=== PATIENT | male | born 1995 | race Caucasian/White ===

== ENCOUNTER 2017-10-18 15:06 | Emergency (ER) | payer SELFPAY ==
[~2017-10-18] VITALS: Ht 180.3 cm; Wt 86.4 kg
[2017-10-18 15:08] VITALS: BP 136/90; PULSE 128; RESP 20; TEMP 99.6; O2SAT 100
[2017-10-18 16:21] LABS: AUTOMATED NEUTROPHIL # 8.6 TH/MM3 (1.8-7.7); BASOPHIL % 0.3 % (0.0-2.0); HEMATOCRIT 44.9 % (39.0-51.0); HEMO FLAGS DIFF FINAL; LYMPH % 15.4 % (9.0-44.0); LYMPHOCYTE # 1.7 TH/MM3 (1.0-4.8); MEAN CELL VOLUME 83.6 FL (80.0-100.0); MEAN CORPUSCULAR HEMOGLOBIN 27.9 PG (27.0-34.0); MEAN CORPUSCULAR HGB CONC 33.3 % (32.0-36.0); MONO % 8.1 % (0.0-8.0); NEUT % 76.2 % (16.0-70.0); PLATELET COUNT 179 TH/MM3 (150-450); RED BLOOD COUNT 5.37 MIL/MM3 (4.50-5.90); RED CELL DISTRIBUTION WIDTH 13.2 % (11.6-17.2); WHITE BLOOD COUNT 11.3 TH/MM3 (4.0-11.0)
[2017-10-18 16:35] LABS: ALT (GPT) 150 U/L (12-78); ANION GAP 9 MEQ/L (5-15); AST (GOT) 43 U/L (15-37); BICARBONATE 24.9 MEQ/L (21.0-32.0); BLOOD UREA NITROGEN 23 MG/DL (7-18); CHLORIDE 106 MEQ/L (98-107); GLOMERULAR FILTRATION RATE 106 ML/MIN (>89); POTASSIUM 3.5 MEQ/L (3.5-5.1); SODIUM (NA) 140 MEQ/L (136-145)
[2017-10-18 16:37] LABS: ALKALINE PHOSPHATASE 78 U/L (45-117); CREATINE KINASE 206 U/L (39-308)
[2017-10-18] MEDS ORDERED: SODIUM CHLOR 0.9% 1000 ML INJ 1,000 ML IV SCH (16:48)
--- NOTE | 2017-10-18 16:59 | PD ---
HPI Chief Complaint: Alcohol/Drug Intoxication Time Seen by Provider: 16:31 Travel History International Travel<30 days: No Contact w/Intl Traveler<30days: No Traveled to known affect area: No History of Present Illness HPI 22-year-old male presents to the emergency department with complaint of diaphoresis, cramping his forearms and hands, and feeling confused after injecting Mollie, and amphetamine, at proximally 4 AM this morning. Denies fever or vomiting. Reports left-sided chest pain that started about 4 hours ago. Denies shortness of breath. Denies heart palpitations. Rates chest pain 6/10. Says it has gotten better since it first started. Describes as an aching and throbbing sensation. Denies associated alcohol use or other illicit drug use. Does not have an established primary care provider. No known allergies. Denies significant past medical history. Denies current medications. Has no other medical complaints. No other modifying factors or associated signs and symptoms. PFSH Past Medical History Medical History: Denies Significant Hx Tetanus Vaccination: Unknown Influenza Vaccination: No Past Surgical History Surgical History: No Previous Surgery Other Surgery: Yes Social History Alcohol Use: No Tobacco Use: Yes (1 ppd) Substance Use: No Allergies-Medications (Allergen,Severity, Reaction): Coded Allergies: No Known Allergies (Unverified Adverse Reaction, Unknown, 10/18/17) Reported Meds & Prescriptions Reported Meds & Active Scripts Active No Active Prescriptions or Reported Medications Review of Systems Except as stated in HPI: all other systems reviewed are Neg Physical Exam Narrative GENERAL: Well-nourished, well-developed patient, in no acute distress SKIN: Warm and dry. HEAD: Atraumatic. Normocephalic. No facial droop noted. Tongue midline. Finger to nose test normal. EYES: Pupils equal and round at 5 mm with brisk reaction. No scleral icterus. No injection or drainage. PERRLA. EOMI. ENT: Mucosa pink and moist. Airway patent. NECK: Trachea midline. No lymphadenopathy. CARDIOVASCULAR: Tachycardic rate and rhythm. No murmur appreciated. RESPIRATORY: No accessory muscle use. Clear to auscultation. Breath sounds equal bilaterally. GASTROINTESTINAL: Abdomen soft, non-tender, nondistended. Hepatic and splenic margins not palpable. Bowel sounds are active 4 quadrants. MUSCULOSKELETAL: No obvious deformities. No clubbing. No cyanosis. No edema. NEUROLOGICAL: Awake and alert. Oriented 3. No obvious cranial nerve deficits. Motor grossly within normal limits. Normal speech. No ataxia. No mid -line drift. Moves all extremities. 5/5 strength to all extremities. PSYCHIATRIC: Appropriate mood and affect; insight and judgment normal. Data Data Last Documented VS Vital Signs Date Time Temp Pulse Resp B/P (MAP) Pulse Ox O2 Delivery O2 Flow Rate FiO2 10/18/17 19:10 101 14 99 Room Air 10/18/17 19:10 125/66 (85) 10/18/17 15:08 99.6 Orders Orders Complete Blood Count With Diff (10/18/17 15:26) Comprehensive Metabolic Panel (10/18/17 15:26) Urinalysis - C+S If Indicated (10/18/17 15:26) Drug Screen, Random Urine (10/18/17 15:26) Creatine Kinase (Cpk) (10/18/17 15:26) Iv Access Insert/Monitor (10/18/17 16:48) Sodium Chlor 0.9% 1000 Ml Inj (Ns 1000 M (10/18/17 16:48) Electrocardiogram (10/18/17 16:59) Ckmb (Isoenzyme) Profile (10/18/17 16:59) Magnesium (Mg) (10/18/17 16:59) Prothrombin Time / Inr (Pt) (10/18/17 16:59) Act Partial Throm Time (Ptt) (10/18/17 16:59) Troponin I (10/18/17 16:59) Chest, Single Ap (10/18/17 16:59) Ecg Monitoring (10/18/17 16:59) Oximetry (10/18/17 16:59) Oxygen Administration (10/18/17 16:59) Sodium Chloride 0.9% Flush (Ns Flush) (10/18/17 17:00) CKMB (10/18/17 18:00) CKMB% (10/18/17 18:00) Ed Discharge Order (10/18/17 20:38) Labs Laboratory Tests Test 10/18/17 15:40 10/18/17 18:00 White Blood Count 11.3 TH/MM3 Red Blood Count 5.37 MIL/MM3 Hemoglobin 15.0 GM/DL Hematocrit 44.9 % Mean Corpuscular Volume 83.6 FL Mean Corpuscular Hemoglobin 27.9 PG Mean Corpuscular Hemoglobin Concent 33.3 % Red Cell Distribution Width 13.2 % Platelet Count 179 TH/MM3 Mean Platelet Volume 10.8 FL Neutrophils (%) (Auto) 76.2 % Lymphocytes (%) (Auto) 15.4 % Monocytes (%) (Auto) 8.1 % Eosinophils (%) (Auto) 0.0 % Basophils (%) (Auto) 0.3 % Neutrophils # (Auto) 8.6 TH/MM3 Lymphocytes # (Auto) 1.7 TH/MM3 Monocytes # (Auto) 0.9 TH/MM3 Eosinophils # (Auto) 0.0 TH/MM3 Basophils # (Auto) 0.0 TH/MM3 CBC Comment DIFF FINAL Differential Comment Blood Urea Nitrogen 23 MG/DL Creatinine 0.89 MG/DL Random Glucose 100 MG/DL Total Protein 8.6 GM/DL Albumin 4.8 GM/DL Calcium Level 10.0 MG/DL Alkaline Phosphatase 78 U/L Aspartate Amino Transf (AST/SGOT) 43 U/L Alanine Aminotransferase (ALT/SGPT) 150 U/L Total Bilirubin 1.0 MG/DL Sodium Level 140 MEQ/L Potassium Level 3.5 MEQ/L Chloride Level 106 MEQ/L Carbon Dioxide Level 24.9 MEQ/L Anion Gap 9 MEQ/L Estimat Glomerular Filtration Rate 106 ML/MIN Total Creatine Kinase 206 U/L 181 U/L Prothrombin Time 11.7 SEC Prothromb Time International Ratio 1.1 RATIO Activated Partial Thromboplast Time 31.9 SEC Magnesium Level 1.9 MG/DL Creatine Kinase MB 3.0 NG/ML Troponin I LESS THAN 0.02 NG/ML [facility] Medical Decision Making Medical Screen Exam Complete: Yes Emergency Medical Condition: Yes Medical Record Reviewed: Yes Differential Diagnosis Drug intoxication, WI, anxiety, drug induced chest pain, dehydration Narrative Course 22-year-old male with chest pain and muscle cramping in his forearms and hands after injecting and amphetamine called Terrie at approximately 4 AM. Neuro exam is unremarkable. CBC and CMP ordered in triage. Cardiac enzymes, chest x-ray, EKG, IV, normal saline bolus ordered. 1736: CBC unremarkable. CMP unremarkable. AST 43. ALT 150. Chest x-ray with no acute findings. 1919: Patient ambulating in the hallway with a normal gait. 1943: Magnesium 1.9. Troponin less than 0.02. CK-MB 3.0. 2038: Patient sleeping comfortably in bed. Patient reports improvement in symptoms; denies chest pain at this time. Patient ate food and tolerated well. Instructed patient to follow up with primary care provider. Patient verbalizes understanding and agreement with treatment plan. Patient is medically cleared and stable for discharge. Discussed reasons to return to the emergency department. Patient agrees with treatment plan. The patients vital signs are stable and the patient is stable for outpatient follow-up and treatment. Patient discharged home, stable and in no acute distress. Diagnosis Primary Impression: Drug intoxication Qualified Codes: F19.920 - Other psychoactive substance use, unspecified with intoxication, uncomplicated Additional Impressions: Muscle cramping Chest pain Qualified Codes: R07.9 - Chest pain, unspecified Referrals: [facility] Primary Care Physician Patient Instructions: General Instructions Additional Instructions: Stop using drugs Increase fluid intake Follow-up with primary care provider Return to the emergency department immediately if worsening of symptoms Med/Other Pt SpecificInfo: No Change to Meds, No Meds Exist/No RX given Scripts No Active Prescriptions or Reported Meds Disposition: 01 DISCHARGE HOME Condition: Stable Lani Reyna Oct 18, 2017 16:59
[2017-10-18] MEDS ORDERED: SODIUM CHLORIDE 0.9% FLUSH 10 ML FLUSH IVF PRN (17:00)
--- NOTE | 2017-10-18 17:28 | RADRPT ---
EXAM DATE/TIME: 10/18/2017 17:18 [place] COMPARISON: No previous studies available for comparison. INDICATIONS : Chest pain and shortness of breath. MEDICAL HISTORY : None. SURGICAL HISTORY : None. ENCOUNTER: Initial ACUITY: 1 day PAIN SCORE: 10/10 LOCATION: Bilateral chest FINDINGS: A single view of the chest demonstrates the lungs to be symmetrically aerated without evidence of mas s, infiltrate or effusion. The cardiomediastinal contours are unremarkable. Osseous structures are intact. CONCLUSION: No acute disease. Masoud Gates MD FACR on October 18, 2017 at 17:26 Board Certified Radiologist. This report was verified electronically.
[2017-10-18 17:43] VITALS: BP 125/72; PULSE 89; RESP 18; O2SAT 100
[2017-10-18 18:36] LABS: MAGNESIUM 1.9 MG/DL (1.5-2.5)
[2017-10-18 18:38] LABS: CREATINE KINASE 181 U/L (39-308)
[2017-10-18 18:47] LABS: APTT (PATIENT) 31.9 SEC (24.3-30.1); INTERNATIONAL NORMALIZED RATIO 1.1 RATIO; PROTHROMBIN TIME - PATIENT 11.7 SEC (9.8-11.6)
[2017-10-18 19:10] VITALS: BP 125/66; PULSE 101; RESP 16; O2SAT 99
--- NOTE | 2017-10-19 15:46 | EKG ---
Date Performed: 10/18/2017 Time Performed: 18:22:57 PTAGE: 22 years EKG: Sinus rhythm NORMAL ECG NO PREVIOUS TRACING DOCTOR: Ton Gabriel Interpretating Date/Time 10/19/2017 15:45:34
== END 2017-10-18 21:01 | disposition home or self-care (01) ==
LOC: NEPD 15:06
DX: T43.621A Poisoning by amphetamines, accidental (unintentional), initial encounter (principal); R25.2 Cramp and spasm; R07.9 Chest pain, unspecified; F17.200 Nicotine dependence, unspecified, uncomplicated
CPT/HCPCS: 71010; 80053; 82550; 82552; 83735; 84484; 85025; 85610; 85730; 93005; 96360; 99285; J7030